=== PATIENT | male | born 1995 | race Two or more races ===

== ENCOUNTER 2020-02-05 10:51 | Emergency (ER) | payer MEDICAID ==
[~2020-02-05] VITALS: Ht 167.6 cm; Wt 65.3 kg
--- NOTE | 2020-02-05 11:22 | NUR ---
[facility] - the patient was found sleeping in a parking lot. BS = 106 100 % sats on RA
--- NOTE | 2020-02-05 11:22 | NUR ---
Notified - ER physician Monitored
[2020-02-05] MEDS ORDERED: NALOXONE HCL 0.4 MG/ML AMPUL ONE (11:30)
[2020-02-05] MEDS ORDERED: NALOXONE HCL 0.4 MG/ML AMPUL IM ONE (11:30)
--- NOTE | 2020-02-05 11:37 | NUR ---
MEDICATED ORDERED, NO RESPONSE NOTED
[2020-02-05] MEDS ORDERED: HALOPERIDOL LACTATE INJ 5 MG/ML VIAL IM ONE (12:00)
[2020-02-05] MEDS ORDERED: MIDAZOLAM HCL 2 MG/2ML VIAL IM ONE (12:00)
--- NOTE | 2020-02-05 12:00 | NUR ---
IN & OUT CATH DONE PER ERMD ORDER. URINE COLLECTED & SENT TO LAB.
[2020-02-05 12:26] LABS: BASOPHILS % (AUTO) 0.4 % (0.0-2.0); EOSINOPHILS % (AUTO) 0.4 % (0.0-6.0); HEMATOCRIT 50 % (39-51); HEMOGLOBIN 16.2 g/dL (13.5-17.5); LYMPHOCYTES # (AUTO) 1.4 /CMM (0.8-4.8); LYMPHOCYTES % (AUTO) 21.3 % (20.0-44.0); MEAN CORPUSCULAR HGB CONC 33 g/dl (31.0-36.0); MEAN CORPUSCULAR VOLUME 89 fL (80-96); MONOCYTES # (AUTO) 0.5 /CMM (0.1-1.30); MONOCYTES % (AUTO) 7.8 % (2.0-12.0); NEUTROPHILS # (AUTO) 4.6 /CMM (1.8-8.9); NEUTROPHILS % (AUTO) 70.1 % (43.0-81.0); PLATELET COUNT (AUTO) 193 /CMM (150-450); RED BLOOD CELL COUNT(AUTO) 5.57 MIL/uL (4.5-6.0); WHITE BLOOD COUNT (AUTO) 6.6 K/uL (4.3-11.0)
[2020-02-05 12:46] LABS: ALANINE AMINOTRANSFERASE 22 U/L (12-78); ALCOHOL, BLOOD < 3 mg/dL (0-0); ALKALINE PHOSPHATASE 64 U/L (46-116); ASPARTATE AMINOTRANSFERASE 18 U/L (15-37); CALCIUM, SERUM 9.2 mg/dL (8.5-10.1); GLUCOSE 89 mg/dL (74-106); TOTAL PROTEIN, SERUM 7.4 g/dL (6.4-8.2); UREA NITROGEN, BLOOD 11 mg/dL (7-18)
[2020-02-05 12:50] LABS: APPEARANCE,URINE Clear (CLEAR); BILIRUBIN,URINE Negative (NEGATIVE); BLOOD, URINE Negative Ery/uL (NEGATIVE); COLOR,URINE Yellow (YELLOW); KETONES,URINE Negative (NEGATIVE); LEUKOCYTE ESTERASE ,URINE Negative (NEGATIVE); NITRITE, URINE Negative (NEGATIVE); PH,URINE 6.5 (5.0-8.0); PROTEIN,URINE Negative (NEGATIVE); UGLUCOSE Negative (NEGATIVE); UROBILINOGEN,URINE 0.2 EU/dL (0.2)
--- NOTE | 2020-02-05 12:50 | NUR ---
IV removed. Catheter intact and site benign. Pressure and 4x4 applied to site. No bleeding noted.
[2020-02-05 13:13] LABS: ALBUMIN 4.2 g/dL (3.4-5.0); BILIRUBIN,DIRECT 0.2 mg/dL (0.0-0.2); CARBON DIOXIDE 33 mmol/L (21-32); CHLORIDE 104 mmol/L (98-107); POTASSIUM 4.1 mmol/L (3.5-5.1); SODIUM SERUM 139 mmol/L (136-145)
[2020-02-05 13:15] LABS: ACETAMINOPHEN 0 ug/ml (10-30)
[2020-02-05 13:16] LABS: SALICYLATE < 0.2 mg/dL (2.8-20.0)
--- NOTE | 2020-02-05 13:22 | NUR ---
Patient discharged to home in stable condition. Written and verbal after care instructions given. Patient verbalizes understanding of instruction.
[2020-02-05 13:25] VITALS: BP 112/66
== END 2020-02-05 13:26 | disposition home or self-care (01) ==
LOC: ER 10:53 → EDBD 10:53 → ER 13:26
DX: F13.20 Sedative, hypnotic or anxiolytic dependence, uncomplicated (principal)
CPT/HCPCS: 36415; 80048; 80076; 80305; 80307; 80329; 81001; 85025; 96372; 99283; G0480; J2310; 81000-TC

== ENCOUNTER 2020-03-26 14:05 | Emergency (ER) | payer MEDICAID ==
[~2020-03-26] VITALS: Ht 180.3 cm; Wt 68.5 kg
[2020-03-26 14:22] VITALS: BP 114/67
--- NOTE | 2020-03-26 14:27 | NUR ---
PT SEEN AND EXAMINED BY .
[2020-03-26] MEDS ORDERED: SULFAMETH/TRIMETH 800/160 MG 1 UDTAB TABLET PO ONE (14:30)
[2020-03-26] MEDS ORDERED: IBUPROFEN 600 MG TABLET PO ONE (14:30)
[2020-03-26] MEDS ORDERED: IBUPROFEN 600 MG TABLET ONE (14:31)
[2020-03-26] MEDS ORDERED: SULFAMETH/TRIMETH 800/160 MG 1 UDTAB TABLET ONE (14:31)
--- NOTE | 2020-03-26 14:37 | NUR ---
Patient discharged to home in stable condition. Written and verbal after care instructions given. Patient verbalizes understanding of instruction.
== END 2020-03-26 14:38 | disposition home or self-care (01) ==
LOC: ER 14:07
DX: L03.115 Cellulitis of right lower limb (principal); F17.200 Nicotine dependence, unspecified, uncomplicated

== ENCOUNTER 2020-03-30 13:25 | Emergency (ER) | payer MEDICAID ==
[~2020-03-30] VITALS: Ht 172.7 cm; Wt 74.8 kg
[2020-03-30 13:36] VITALS: BP 134/81
--- NOTE | 2020-03-30 14:58 | NUR ---
WOUND CLEANSED AND EVALUATED BY DR. ANTUNEZ. WOUND COVERED WITH XEROFORM AND DRY DRESSING. Patient discharged to home in stable condition. Written and verbal after care instructions given. Patient verbalizes understanding of instruction.
== END 2020-03-30 14:58 | disposition home or self-care (01) ==
LOC: ER 13:29
DX: L03.115 Cellulitis of right lower limb (principal)

== ENCOUNTER 2021-11-26 11:08 | Emergency (ER) | payer MEDICAID ==
[~2021-11-26] VITALS: Ht 180.3 cm; Wt 74.8 kg
--- NOTE | 2021-11-26 11:17 | NUR ---
BIBS C/O RIGHT ELBOW PAIN S/P FALLING FROM SCATEBOARD 20MINS PARTS FABRICATOR. PT STATED PAIN IS 10/10 ON PAIN SCALE. AWAITING MD HICKS.
--- NOTE | 2021-11-26 12:10 | NUR ---
X RAY AT BEDSIDE
--- NOTE | 2021-11-26 12:28 | NUR ---
PT TAKEN TO CT [facility]IA [facility]
--- NOTE | 2021-11-26 12:42 | NUR ---
PT RETURNED FROM [facility]IA [facility]
[2021-11-26 12:54] LABS: BASOPHILS % (AUTO) 0.7 % (0.0-2.0); EOSINOPHILS % (AUTO) 1.1 % (0.0-6.0); HEMATOCRIT 42 % (39-51); HEMOGLOBIN 14.3 g/dL (13.5-17.5); LYMPHOCYTES # (AUTO) 1.2 K/uL (0.8-4.8); LYMPHOCYTES % (AUTO) 20.5 % (20.0-44.0); MEAN CORPUSCULAR HGB CONC 34 g/dl (31.0-36.0); MEAN CORPUSCULAR VOLUME 87 fL (80-96); MONOCYTES # (AUTO) 0.6 K/uL (0.1-1.30); MONOCYTES % (AUTO) 9.8 % (2.0-12.0); NEUTROPHILS # (AUTO) 4.1 K/uL (1.8-8.9); NEUTROPHILS % (AUTO) 67.9 % (43.0-81.0); PLATELET COUNT (AUTO) 183 K/uL (150-450); RED BLOOD CELL COUNT(AUTO) 4.87 MIL/uL (4.5-6.0)
--- NOTE | 2021-11-26 13:01 | NUR ---
URINE COLLECTED AND SENT
[2021-11-26 13:10] LABS: CALCIUM, SERUM 8.6 mg/dL (8.5-10.1); CARBON DIOXIDE 30 mmol/L (21-32); CHLORIDE 105 mmol/L (98-107); CREATININE 0.9 mg/dL (0.6-1.3); GLUCOSE 87 mg/dL (74-106); POTASSIUM 4.1 mmol/L (3.5-5.1); SODIUM SERUM 139 mmol/L (136-145); UREA NITROGEN, BLOOD 14 mg/dL (7-18)
[2021-11-26 13:15] LABS: ALANINE AMINOTRANSFERASE 30 U/L (12-78); ALBUMIN 3.8 g/dL (3.4-5.0); ALKALINE PHOSPHATASE 71 U/L (46-116); ASPARTATE AMINOTRANSFERASE 16 U/L (15-37); BILIRUBIN,DIRECT 0.1 mg/dL (0.0-0.2); BILIRUBIN,TOTAL 0.5 mg/dL (0.2-1.0); TOTAL PROTEIN, SERUM 6.8 g/dL (6.4-8.2)
[2021-11-26 13:34] LABS: ALCOHOL, BLOOD < 3 mg/dL (0-0)
[2021-11-26 14:32] LABS: ACETAMINOPHEN 0 ug/ml (10-30)
[2021-11-26] MEDS ORDERED: IBUP-1955 PO (15:12)
[2021-11-26] MEDS ORDERED: NALO4SPR BNOSTRILS (15:12)
--- NOTE | 2021-11-26 17:12 | NUR ---
Patient discharged to home in stable condition. Written and verbal after care instructions given. Patient verbalizes understanding of instruction.
--- NOTE | 2021-11-26 17:12 | NUR ---
IV removed. Catheter intact and site benign. Pressure and 4x4 applied to site. No bleeding noted.
[2021-11-26 17:13] VITALS: BP 119/71
== END 2021-11-26 17:13 | disposition home or self-care (01) ==
LOC: ER 11:09
DX: S52.021A Displaced fracture of olecranon process without intraarticular extension of right ulna, initial encounter for closed fracture (principal); R41.82 Altered mental status, unspecified; F19.10 Other psychoactive substance abuse, uncomplicated; F17.200 Nicotine dependence, unspecified, uncomplicated; V00.131A Fall from skateboard, initial encounter; Y93.51 Activity, roller skating (inline) and skateboarding; Y92.89 Other specified places as the place of occurrence of the external cause; Y99.8 Other external cause status
CPT/HCPCS: 36415; 70450-TC; 71045-TC; 72125-TC; 73080-TC; 80048-TC; 80076-TC; 85025-TC; G0480